=== PATIENT | male | born 1930 | race Caucasian/White ===

== ENCOUNTER 2017-08-06 12:12 | Inpatient (IN) ==
[2017-08-06] MEDS ORDERED: 0.9 % SODIUM CHLORIDE 1,000 ML IV ONE ×2 (12:21→14:42)
[2017-08-06] MEDS ORDERED: ONDANSETRON 4 MG/2 ML VIAL IV ONE (12:41)
[2017-08-06] MEDS ORDERED: LACTATED RINGERS 1,000 ML IV ONE (12:41)
--- NOTE | 2017-08-06 12:48 | Emergency Department Note ---
General Adult HPI - General Chief complaint: Weakness Stated complaint: nausea, weakness and headache Time Seen by Provider: 08/06/17 12:31 Source: patient Mode of arrival: EMS - History of Present Illness HPI Narrative: Patient has had flulike symptoms for about 24 hours with generalized weakness nausea slight cough. He has felt slightly dizzy and lightheaded. He recently switched from gabapentin to Tegretol and said the symptoms kind of started when he made this switch. - Related Data Home Medications Medication Instructions Recorded Confirmed Clopidogrel [Plavix] 75 mg PO DAILY 02/11/15 08/06/17 Latanoprost Ophth Drops [Xalatan 1 gtt OD HS 02/11/15 08/06/17 Ophth Drops] Levothyroxine [Synthroid] 50 mcg PO DAILY 02/11/15 08/06/17 Lisinopril [Zestril] 10 mg PO DAILY 02/11/15 08/06/17 Multivit-Min/FA/Lycopen/Lutein 1 each PO QDAY 02/11/15 08/06/17 [Centrum Silver Tablet] Pantoprazole [Protonix] 40 mg PO ONCE 02/11/15 08/06/17 Simvastatin [Zocor] 40 mg PO HS 02/11/15 08/06/17 carBAMazepine [Equetro] 200 mg PO Q12H 08/06/17 08/06/17 Allergies Allergy/AdvReac Type Severity Reaction Status Date / Time No Known Drug Allergies Allergy Verified 08/06/17 12:21 Review of Systems All systems ED: reviewed and negative except as stated. Past Medical History - Past Medical History Medical history: Reports: GERD, hypertension Surgical history ED: Reports: cataract - Social History smoking status: Former smoker Physical Exam Limitations: no limitations General appearance: alert Head: atraumatic Eye: Present: normal appearance ENT: normal exam Neck: Present: normal inspection Chest: Present: normal inspection Respiratory: Present: normal lung sounds bilaterally Cardiovascular: Present: regular rate, normal rhythm, normal heart sounds Abdominal: Present: soft. Absent: distention, tenderness Neurological: Present: alert Psychiatric: Present: normal affect Skin: Present: warm, dry, intact Course Vital Signs Temperature 97.2 F 08/06/17 12:14 Pulse Rate 63 08/06/17 12:14 Respiratory Rate 17 08/06/17 12:14 Blood Pressure 179/92 08/06/17 12:14 Pulse Oximetry (%) 97 08/06/17 12:14 Temperature 97.2 F 08/06/17 12:14 Pulse Rate 76 08/06/17 17:16 Respiratory Rate 15 08/06/17 17:16 Blood Pressure 167/88 08/06/17 17:16 Pulse Oximetry (%) 96 08/06/17 17:16 Medical Decision Making - MDM Narrative Medical decision making narrative: Patient's lab work urine and chest x-ray are unremarkable. However the patient felt too weak to get up and go home. We did hydrate him with 3 L of fluid but he still felt dizzy when he sat up. We will admit him observation to the hospital. - Lab Data Lab results reviewed: Yes I reviewed the patient's lab results. Result diagrams: 08/06/17 12:21 08/06/17 12:21 Lab Results 08/06/17 08/06/17 08/06/17 Range/Units 12:21 12:21 13:09 WBC 11.6 H (4.5-11.0) K/mcL RBC 4.05 L (4.50-5.90) M/mcL Hgb 12.7 L (13.5-16.5) g/dL Hct 37.8 L (41.0-55.0) % MCV 93.3 (80.0-100.0) fL MCH 31.4 (26.0-34.0) pg MCHC 33.7 (31.0-36.0) g/dL RDW 13.6 (11.5-14.5) % Plt Count 288 (140-440) K/mcL MPV 7.4 (7.4-10.4) fL Gran % 73.8 (38.0-78.0) % Lymph % (Auto) 18.4 (15.5-49.0) % [place] % (Auto) 5.0 (1.0-12.0) % Eos % (Auto) 2.5 (0.0-7.0) % Baso % (Auto) 0.3 (0.0-2.0) % Gran # 8.6 H (1.8-8.0) K/mcL Lymph # (Auto) 2.1 (1.5-4.8) K/mcL [place] # (Auto) 0.6 (0.1-0.9) K/mcL Eos # (Auto) 0.3 (0.0-0.7) K/mcL Baso # (Auto) 0 (0.0-0.3) K/mcL Sodium 144 (133-145) mmol/L Potassium 3.7 (3.3-5.1) mmol/L Chloride 110 H (96-108) mmol/L Carbon Dioxide 21 L (22-30) mmol/L Anion Gap 13.0 (8-16) BUN 20 (8-23) mg/dl Creatinine 0.9 (0.7-1.2) mg/dl GFR Calculation 78 Glucose 131 H (70-105) mg/dL Calcium 8.2 L (8.6-10.4) mg/dl Total Bilirubin 0.3 (0.0-1.0) mg/dL AST 12 (0-37) U/l ALT 10 (0-40) U/l Alkaline Phosphatase 93 (39-117) U/L Total Protein 6.5 (5.9-8.4) gm/dL Albumin 3.4 (3.2-5.2) gm/dL Globulin 3.1 (2.2-3.7) gm/dL Albumin/Globulin Ratio 1.1 (1.0-2.3) Urine Color Urine Appearance Urine pH (5.0-9.0) Ur Specific Roll (1.000-1.035) Urine Protein (NEG) mg/dL Urine Glucose (UA) (NEG) mg/dL Urine Ketones (NEG) mg/dL Urine Occult Blood (<0.03) mg/dL Urine Nitrate (NEG) Urine Bilirubin (NEG) mg/dL Urine Urobilinogen (NEG) mg/dL Ur Leukocyte Esterase (NEG) /uL Ur Culture Indicated? Influenza A (Rapid) Presumed negative Influenza B (Rapid) Presumed negative 08/06/17 Range/Units 16:03 WBC (4.5-11.0) K/mcL RBC (4.50-5.90) M/mcL Hgb (13.5-16.5) g/dL Hct (41.0-55.0) % MCV (80.0-100.0) fL MCH (26.0-34.0) pg MCHC (31.0-36.0) g/dL RDW (11.5-14.5) % Plt Count (140-440) K/mcL MPV (7.4-10.4) fL Gran % (38.0-78.0) % Lymph % (Auto) (15.5-49.0) % [place] % (Auto) (1.0-12.0) % Eos % (Auto) (0.0-7.0) % Baso % (Auto) (0.0-2.0) % Gran # (1.8-8.0) K/mcL Lymph # (Auto) (1.5-4.8) K/mcL [place] # (Auto) (0.1-0.9) K/mcL Eos # (Auto) (0.0-0.7) K/mcL Baso # (Auto) (0.0-0.3) K/mcL Sodium (133-145) mmol/L Potassium (3.3-5.1) mmol/L Chloride (96-108) mmol/L Carbon Dioxide (22-30) mmol/L Anion Gap (8-16) BUN (8-23) mg/dl Creatinine (0.7-1.2) mg/dl GFR Calculation Glucose (70-105) mg/dL Calcium (8.6-10.4) mg/dl Total Bilirubin (0.0-1.0) mg/dL AST (0-37) U/l ALT (0-40) U/l Alkaline Phosphatase (39-117) U/L Total Protein (5.9-8.4) gm/dL Albumin (3.2-5.2) gm/dL Globulin (2.2-3.7) gm/dL Albumin/Globulin Ratio (1.0-2.3) Urine Color Straw Urine Appearance Clear Urine pH 7.0 (5.0-9.0) Ur Specific Roll 1.012 (1.000-1.035) Urine Protein Neg (NEG) mg/dL Urine Glucose (UA) Negative (NEG) mg/dL Urine Ketones Neg (NEG) mg/dL Urine Occult Blood Neg (<0.03) mg/dL Urine Nitrate Neg (NEG) Urine Bilirubin Neg (NEG) mg/dL Urine Urobilinogen Neg (NEG) mg/dL Ur Leukocyte Esterase Neg (NEG) /uL Ur Culture Indicated? No Influenza A (Rapid) Influenza B (Rapid) - Radiology Data Radiology results reviewed: Yes I reviewed the patient's radiology results. Disposition Pt seen by DEATH CLAIM EXAMINER/PA only: No Clinical Impression: Viral syndrome Disposition: Xfer As Outpt/Obs ([facility]) Condition: Good Referrals: Ren Clayton MD [Primary Care Provider] - Time of Disposition: 17:26
[2017-08-06 13:02] LABS: Basophils # (Auto) 0 K/mcL (0.0-0.3); Basophils % (Auto) 0.3 % (0.0-2.0); Eosinophils # (Auto) 0.3 K/mcL (0.0-0.7); Eosinophils % (Auto) 2.5 % (0.0-7.0); Granulocytes % (Auto) 73.8 % (38.0-78.0); Lymphocytes # (Auto) 2.1 K/mcL (1.5-4.8); Lymphocytes % (Auto) 18.4 % (15.5-49.0); Mean Cell Volume 93.3 fL (80.0-100.0); Mean Corpuscular HGB Conc 33.7 g/dL (31.0-36.0); Mean Corpuscular Hemoglobin 31.4 pg (26.0-34.0); Monocytes # (Auto) 0.6 K/mcL (0.1-0.9); Platelet Count 288 K/mcL (140-440); RBC 4.05 M/mcL (4.50-5.90); Red Cell Distribution Width 13.6 % (11.5-14.5)
[2017-08-06 13:20] LABS: ALT/SGPT 10 U/l (0-40); Albumin 3.4 gm/dL (3.2-5.2); Albumin/Globulin Ratio 1.1 (1.0-2.3); Alkaline Phosphatase 93 U/L (39-117); Blood Urea Nitrogen 20 mg/dl (8-23)
--- NOTE | 2017-08-06 13:33 | XRay Report ---
CLINICAL INFORMATION: Fever and chills COMPARISON: 05/20/2014 FINDINGS: Heart is borderline enlarged, but unchanged. Mediastinum and pulmonary vessels are normal. Lungs are clear. No effusions. 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 IMPRESSION: No acute disease - stable since chest x-ray three years ago Interpreted and Authenticated by: Joselito John 08/06/17
[2017-08-06] MEDS ORDERED: LIDOCAINE JEL 2% 1 TUBE 30GM TOPICAL ONE ×2 (15:29→15:31)
[2017-08-06 16:50] LABS: Appearance,Urine CLEAR; Bilirubin,Urine NEG (NEG); Color,Urine STRAW; Glucose,Urine (UA) NEGATIVE (NEG); Leukocyte Esterase,Urine NEG /uL (NEG); Protein,Urine NEG (NEG); Specific Gravity,Urine 1.012 (1.000-1.035); Urine Blood NEG mg/dL (<0.03); Urobilinogen,Urine NEG (NEG)
[2017-08-06] MEDS ORDERED: ONDANSETRON 4 MG/2 ML VIAL ONE (17:53)
--- NOTE | 2017-08-06 17:57 | Internal Med History&Physical ---
Medical - H&P: HPI Patient information: Note initiated : 08/06/17 at 5:54 pm Service Date, if different from initiated Date: [] Patient: Martin Kincaid 86 y/o M admitted on for nausea, weakness and headache. Chief Complaint: [] History of present illness: Mr. Kincaid is a 86 year old Male with h/o chr back pain, who presents to the ER with 2 days history of not feeling well. The patient lives with his , was recently prescribed a medication I believe carbamazepine. The posterior most was taken on Monday night. Since Monday. The patient has been feeling weak and unsteady on his feet. He has dizziness when he tries to stand up, and has gait unsteadiness. The patient had some weakness in his lower extremity as well as unsteadiness. He notes his weakness started the day after he took the carbamazepine. The patient weakness progressed from yesterday to today, to a point where he is unable to ambulate by self He admits also to having abdominal pain, in the lower abdomen, intermittent to severe in intensity, waxing and waning, non radiating, no aggravating or relieving factors, not associated with BM or micturation. He has nausea and several bouts of vomiting since this Morning. He has some runny nose, but no cough. In the ER the patient was noted to be afebrile, had mild leucocytosis, neg cxr and neg ua The patients denies any slurring of speech, no facial deviation, no focal weakness, no fever, no blood in vomitus, no diarrhea or constipation. no urinary complaints. The patient was admitted to the hospital for further management. All systems: reviewed and no additional remarkable complaints except as stated ( as per HPI) Medical - H&P: PMH Medical history: vertebral artery stenosis HTN HLD HYpothyroidism Chr Back pain GERD Surgical history: Right knee surgery. Family history: reviewed and not pertinent Pertinent family history: mother with cardiac disease. Social history: lives with not an active smoker, ex smoker last cig > 35-40 yrs ago no etoh no recreational drugs. Medical - H&P: Meds Home Medications Medication Instructions Recorded Confirmed Type Clopidogrel [Plavix] 75 mg PO DAILY 02/11/15 08/06/17 History Latanoprost Ophth Drops [Xalatan 1 gtt OD HS 02/11/15 08/06/17 History Ophth Drops] Levothyroxine [Synthroid] 50 mcg PO DAILY 02/11/15 08/06/17 History Lisinopril [Zestril] 10 mg PO DAILY 02/11/15 08/06/17 History Multivit-Min/FA/Lycopen/Lutein 1 each PO QDAY 02/11/15 08/06/17 History [Centrum Silver Tablet] Pantoprazole [Protonix] 40 mg PO ONCE 02/11/15 08/06/17 History Simvastatin [Zocor] 40 mg PO HS 02/11/15 08/06/17 History carBAMazepine [Equetro] 200 mg PO Q12H 08/06/17 08/06/17 History Allergies Allergy/AdvReac Type Severity Reaction Status Date / Time No Known Drug Allergies Allergy Verified 08/06/17 12:21 Medical - H&P: Exam - Constitutional Vitals: Temp Pulse Resp BP Pulse Ox 97.2 F 76 15 167/88 96 08/06/17 12:14 08/06/17 17:16 08/06/17 17:16 08/06/17 17:16 08/06/17 17:16 Exam: GENERAL: The patient is a well-developed, well-nourished in no apparent distress. Is alert and oriented x3. VITAL SIGNS: Reviewed and as noted elsewhere. HEENT: Head is normocephalic and atraumatic. Extraocular muscles are intact. Pupils are equal, round, and reactive to light. Nares appeared normal. Mouth appears any without lesions. Mucous membranes are dry NECK: Normal to inspection, Supple, No lymphadenopathy or thyromegaly. LUNGS: Air entry equal on both sides, no wheezing, crackles or rhonchi noted. No accessory muscles of respiration HEART: Regular rate and rhythm normal, S1 and S2 heard, no Gallop, S3 or Rub Noted, No Gross murmur heard. ABDOMEN: Soft, mild tenderness to deep palpation in the lower abdomen, no guarding or rigidity, abdomen is nondistended. Positive bowel sounds. No hepatosplenomegaly was noted. EXTREMITIES: No cyanosis, clubbing, rash, lesions or edema. NEUROLOGIC: Cranial nerves II through XII are intact. Motor and Sensory System Grossly Intact, upper extremity strength bilaterally 5/5, lower extremity strenght gladis 4+/5, able to percieve touch bilaterally in lower extremity, no spinal tenderness. PSYCHIATRIC: Normal affect, Normal Mood. Appropriate Behavior. SKIN: No ulceration or wounds noted, No jaundice, No rash noted. Medical - H&P: Reslt - Labs CBC & Chem 7: 08/06/17 12:21 08/06/17 12:21 Labs: Short CBC 08/06/17 Range/Units 12:21 WBC 11.6 H (4.5-11.0) K/mcL Hgb 12.7 L (13.5-16.5) g/dL Hct 37.8 L (41.0-55.0) % Plt Count 288 (140-440) K/mcL BMP 08/06/17 12:21 Sodium 144 Potassium 3.7 Chloride 110 H Carbon Dioxide 21 L BUN 20 Creatinine 0.9 Glucose 131 H Calcium 8.2 L Liver Function 08/06/17 Range/Units 12:21 Total Bilirubin 0.3 (0.0-1.0) mg/dL AST 12 (0-37) U/l ALT 10 (0-40) U/l Alkaline Phosphatase 93 (39-117) U/L Albumin 3.4 (3.2-5.2) gm/dL Urine 08/06/17 Range/Units 16:03 Urine Color Straw Urine Appearance Clear Urine pH 7.0 (5.0-9.0) Ur Specific [place] 1.012 (1.000-1.035) Urine Protein Neg (NEG) mg/dL Urine Glucose (UA) Negative (NEG) mg/dL Medical - H&P: A/P - Narrative A/P Narrative: A/P Leucocytosis/ ABdominal pain: Pt has unexplained leucocytosis, abdominal pain, nausea and vomiting, GET CT Abdomen and pelvis, may explain pt weakness. Dizziness/ lower extremity weakness: Could be related to patient starting a new medication, carbamazipine, hold same for now, get CT head. HTN: BP elevated resume home medication, prn po clonidine HLD resume home med Hypothyroidsim, continue statin Vertebral Artery s tenosis: not candidate for intervention as per family, plan to continue statin, plavix for now. CT head will help evaluate any acute CVA. OT/PT eval and treat Prn pain meds for chr back pain DVT hep sq Diet cardiac DNR code status.
[2017-08-06] MEDS ORDERED: ALBUTEROL SULFATE 2.5 MG/3 ML NEBULIZER NEB PRN (18:05)
[2017-08-06] MEDS ORDERED: oxyCODONE HCL 5 MG TABLET PO PRN (18:05)
[2017-08-06] MEDS ORDERED: ONDANSETRON 4 MG/2 ML VIAL IV PRN (18:05)
[2017-08-06] MEDS ORDERED: IOPAMIDOL 100 ML BOTTLE IV ONE (18:18)
[2017-08-06] MEDS: ACETAMINOPHEN 325 MG TABLET PO PRN (19:24)
[2017-08-06] MEDS: cloNIDine HCL 0.1 MG TABLET PO PRN (19:25)
[2017-08-06] MEDS: DEXTROSE 5%-LR W/20MEQ KCL 1,000 ML IV SCH (19:25)
[2017-08-06] MEDS: LISINOPRIL 10 MG TABLET PO SCH (19:25)
--- NOTE | 2017-08-06 19:47 | Cat Scan Report ---
CLINICAL INFORMATION: Dizziness COMPARISON: CT cerebral angiogram from over three years prior - 04/02/2014. TECHNIQUE: 2.5 mm helical slices were obtained in the skull base to vertex. Following reconstruction, axial reformatted images were reviewed at bone and parenchymal windows. The exam was performed using radiation dose optimization techniques including, but not limited to, automated exposure control, adjustment of the mA and/or kV according to patient size and use of iterative reconstruction technique. FINDINGS: The ventricles, sulci, fissures, and cisterns are symmetrically enlarged compatible with mild age-related atrophy - no subdural hemorrhage or other extra-axial fluid collection or mass appreciated. Minimal chronic ischemic changes in the deep cerebral white matter are stable and typical for age. There is no intracerebral hemorrhage, mass effect, edema or other acute finding. Bone windows show no osseous abnormality IMPRESSION: Mild atrophy with minimal chronic ischemic changes in the deep cerebral white matter typical for age and unchanged from prior study Interpreted and Authenticated by: Joselito John 08/06/17
--- NOTE | 2017-08-06 19:56 | Cat Scan Report ---
CLINICAL INFORMATION: Nausea and vomiting abdominal pain COMPARISON: Abdomen and pelvic CT 07/16/2012 TECHNIQUE: Following enteric contrast, 80 cc of Isovue-300 were injected intravenously, and 60 seconds later, 0.625 mm helical slices were obtained from the mid heart through the subtrochanteric regions. Following reconstruction, 2.5 mm sagittal, coronal and axial reformatted images were processed and reviewed at bone, lung and soft tissue windows. Five minutes later, 0.625 mm helical slices were obtained from the mid heart through the kidneys and viewed at soft tissue windows.The exam was performed using radiation dose optimization techniques including, but not limited to, automated exposure control, adjustment of the mA and/or kV according to patient size and use of iterative reconstruction technique. FINDINGS: Lung bases show scattered pleural plaques which are stable since the 2012 study. Some are partially calcified: Findings compatible asbestos exposure. There are no effusions. Visualized heart is mildly enlarged and there is calcific plaque in the visualized coronary arteries. Images through the abdomen show an 18 mm simple cyst in the left hepatic lobe. No significant hepatic abnormality. Gallbladder and bile ducts are normal: CBD is 5 mm. The spleen, both adrenal glands, pancreas and aorta, including aortic branches, are normal in size, configuration and attenuation without focal lesion. Parapelvic cysts are seen in each kidney but no significant renal lesion. There is no free air, free fluid or adenopathy. Stomach, small bowel and appendix are unremarkable. Multiple sigmoid diverticuli with mild inflammation of perisigmoid fat is suggestive of mild sigmoid diverticulitis. The remaining colon is Prostate is mildly enlarged and there is marked distention of the urinary bladder. Urinary bladder wall is normal thickness. Please Bone windows show no osseous abnormality IMPRESSION: 1. Sigmoid diverticulitis - no abscess or other complication 2. Moderate distention of the urinary bladder. Prostate is mildly enlarged 3. Multiple parapelvic cysts on both kidneys 4. 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 Interpreted and Authenticated by: Joselito John 08/06/17
[2017-08-06] MEDS: CIPROFLOXACIN 400 MG/200 ML BAG IV SCH (22:03)
[2017-08-06] MEDS: 0.9 % SODIUM CHLORIDE 10 ML SYRINGE IV SCH (22:05)
[2017-08-06] MEDS: DOCUSATE SODIUM 100 MG CAPSULE PO SCH (22:54)
[2017-08-06] MEDS: LATANOPROST OPHTH DROPS 2.5ML BOTTLE OD SCH (22:54)
[2017-08-06] MEDS: HEPARIN 5,000 UNIT/ML VIAL SQ SCH (22:54)
[2017-08-06] MEDS: SIMVASTATIN 40 MG TABLET PO SCH (22:55)
[2017-08-06] MEDS: metroNIDAZOLE 500 MG/100 ML BAG IV SCH (23:10)
[2017-08-07] MEDS: metroNIDAZOLE 500 MG/100 ML BAG IV SCH ×3 (05:45→21:55)
[2017-08-07 05:59] LABS: Basophils # (Auto) 0 K/mcL (0.0-0.3); Basophils % (Auto) 0.2 % (0.0-2.0); Eosinophils # (Auto) 0.2 K/mcL (0.0-0.7); Eosinophils % (Auto) 1.9 % (0.0-7.0); Granulocytes % (Auto) 68.9 % (38.0-78.0); Lymphocytes # (Auto) 2.5 K/mcL (1.5-4.8); Lymphocytes % (Auto) 21.6 % (15.5-49.0); Mean Cell Volume 95.4 fL (80.0-100.0); Mean Corpuscular HGB Conc 34.8 g/dL (31.0-36.0); Mean Corpuscular Hemoglobin 33.2 pg (26.0-34.0); Monocytes # (Auto) 0.9 K/mcL (0.1-0.9); Monocytes % (Auto) 7.4 % (1.0-12.0); Platelet Count 258 K/mcL (140-440); RBC 3.47 M/mcL (4.50-5.90); Red Cell Distribution Width 13.9 % (11.5-14.5)
[2017-08-07] MEDS: 0.9 % SODIUM CHLORIDE 10 ML SYRINGE IV SCH ×3 (05:59→21:49)
[2017-08-07 06:32] LABS: ALT/SGPT 8 U/l (0-40); Albumin 3.3 gm/dL (3.2-5.2); Albumin/Globulin Ratio 1.2 (1.0-2.3); Alkaline Phosphatase 88 U/L (39-117); Bilirubin,Direct < 0.2 mg/dL (0.0-0.3); Blood Urea Nitrogen 17 mg/dl (8-23); Gamma Glutamyl Transpeptidase 12 U/L (8-61)
[2017-08-07] MEDS: PANTOPRAZOLE 40 MG TABLET PO SCH (08:03)
[2017-08-07] MEDS: LEVOTHYROXINE 50 MCG TABLET PO SCH (08:03)
[2017-08-07] MEDS: LISINOPRIL 10 MG TABLET PO SCH (09:40)
[2017-08-07] MEDS: DOCUSATE SODIUM 100 MG CAPSULE PO SCH ×2 (09:40→20:50)
[2017-08-07] MEDS: CLOPIDOGREL 75 MG TABLET PO SCH (09:41)
[2017-08-07] MEDS: CIPROFLOXACIN 400 MG/200 ML BAG IV SCH ×2 (09:41→20:50)
[2017-08-07] MEDS: HEPARIN 5,000 UNIT/ML VIAL SQ SCH ×2 (09:47→20:50)
[2017-08-07] MEDS: DEXTROSE 5%-LR W/20MEQ KCL 1,000 ML IV SCH (13:08)
--- NOTE | 2017-08-07 13:58 | Internal Med Progress Note ---
Medical - PN: Subj Patient information: Note initiated : 08/07/17 at 1:56 pm Service Date, if different from initiated Date: [] Patient: Martin Kincaid 86 y/o M admitted on 08/07/17 for Nausea, Weakness and Headache. Chief Complaint: [] Interval history: Mr. Kincaid is a 86 year old Male with h/o chr back pain, who presents to the ER with 2 days history of not feeling well. The patient lives with his , was recently prescribed a medication I believe carbamazepine. The posterior most was taken on Monday night. Since Monday. The patient has been feeling weak and unsteady on his feet. He has dizziness when he tries to stand up, and has gait unsteadiness. The patient had some weakness in his lower extremity as well as unsteadiness. He notes his weakness started the day after he took the carbamazepine. The patient weakness progressed from yesterday to today, to a point where he is unable to ambulate by self He admits also to having abdominal pain, in the lower abdomen, intermittent to severe in intensity, waxing and waning, non radiating, no aggravating or relieving factors, not associated with BM or micturation. He has nausea and several bouts of vomiting since this Morning. He has some runny nose, but no cough. In the ER the patient was noted to be afebrile, had mild leucocytosis, neg cxr and neg ua The patients denies any slurring of speech, no facial deviation, no focal weakness, no fever, no blood in vomitus, no diarrhea or constipation. no urinary complaints. The patient was admitted to the hospital for further management. Aug 07 Patient seen examined, no acute overnight events, patient still feels very weak , although somewhat better than yesterday. Still unable to walk without support. Still has weakness in bilateral lower extremities. He denies any fever, chills, abdominal pain, unchanged. No constipation, no diarrhea. CT scan done yesterday shows sigmoid diabetes mellitus, uncomplicated. This is a 86-year-old gentleman with significant physical symptoms like weakness, dizziness and fatigue, diverticulitis on her CT abdomen and leukocytosis on labs. I do not expect this elderly gentleman to mount a full treatment response -like high-grade fevers and very high white count, but still be quite sick, as well as have significant debility secondary to his infection. I anticipate that this gentleman will need aggressive physical therapy as well as IV antibiotics. I therefore recommend anticipate him to be in the hospital for more than 2 midnights and was therefore make him inpatient status. Pertinent ROS: Denies headache, dizziness Denies chest pain, palpitations Denies cough or shortness of breath present abdominal pain, improving nausea no vomiting. - Constitutional Vitals: Vital Signs Temp Pulse Resp BP Pulse Ox 98.3 F 58 L 16 162/84 96 08/07/17 11:59 08/07/17 04:00 08/07/17 11:59 08/07/17 11:59 08/07/17 11:59 Period Temp Pulse Resp BP Sys/Souza Pulse Ox Last 24 Hr 97.5 F-98.3 F 58-83 12-19 150-192/79-102 94-99 Intake and Output 08/06/17 08/07/17 08/07/17 21:59 05:59 13:59 Intake Total 1000 / 1000 400 / 400 1300 / 1300 Output Total 276 / 276 725 / 725 Balance 724 / 724 -325 / -325 1300 / 1300 Weight 180 lb Intake & Output: Intake & Output 08/06/17 08/07/17 08/07/17 21:59 05:59 13:59 Intake Total 1000 / 1000 400 / 400 1300 / 1300 Output Total 276 / 276 725 / 725 Balance 724 / 724 -325 / -325 1300 / 1300 Weight 180 lb Intake: IV 1000 / 1000 300 / 300 1300 / 1300 Dextrose 5%-Lr W/20Meq KCl 1, 1000 / 1000 000 ml @ 75 mls/hr IV .[id number] [facility] Rx#:[id number] Lactated Ringers 1,000 ml @ 1000 / 1000 Wide Open IV BOLUS ONE Rx#: [id number] Oral 100 / 100 Output: Void Amount 275 / 275 725 / 725 # of times incontinent of urine Other: # Voids 1 1 Exam: Constitutional; Afebrile, cooperative, alert, not in distress. Eyes- No icterus, , No periorbital swelling Ears- Ext ear normal, hearing normal to conversation. Neck- Midline trachea, supple Respiratory system: Air Entry equal on both sides, No crackles or wheezing, no rhonchi. CVS- Rate rhythm regular, S1,S2 heard, no gallop, no rub. Abdomen- Soft , tender hypogastric on deep palpation no guarding or rigidity,. ANALYTICAL CONSULTANT- AOOx3, moving all extremities, no gross focal deficit noted. Medical - PN: Obj Da - Labs CBC & Chem 7: 08/07/17 04:32 08/07/17 04:32 Labs: Abnormal Lab Results 08/07/17 08/07/17 08/06/17 04:32 04:32 12:21 WBC 11.6 H RBC 3.47 L Hgb 11.5 L Hct 33.1 L Gran # Chloride 110 H Carbon Dioxide 21 L Glucose 109 H 131 H Calcium 8.2 L 08/06/17 12:21 WBC 11.6 H RBC 4.05 L Hgb 12.7 L Hct 37.8 L Gran # 8.6 H Chloride Carbon Dioxide Glucose Calcium Meds: Medications Acetaminophen (Tylenol) 650 mg PO Q6HP PRN PRN Reason: PAIN/FEVER > 101 Last Admin: 08/06/17 19:24 Dose: 650 mg Albuterol Sulfate (Ventolin) 2.5 mg NEB Q2HP PRN PRN Reason: Shortness Of Breath Clonidine HCl (Catapres) 0.1 mg PO Q4HP PRN PRN Reason: Hypertension Last Admin: 08/06/17 19:25 Dose: 0.1 mg Clopidogrel Bisulfate (Plavix) 75 mg PO DAILY [facility] Last Admin: 08/07/17 09:41 Dose: 75 mg Docusate Sodium (Colace) 100 mg PO BID [facility] Last Admin: 08/07/17 09:40 Dose: 100 mg Heparin Sodium (Porcine) (Heparin) 5,000 unit SQ Q12 [facility] Last Admin: 08/07/17 09:47 Dose: 5,000 unit Potassium Cl/Dextrose/Lact Ringer's (Dextrose 5%-Lr W/20meq Kcl) 1,000 mls @ 75 mls/hr IV .[id number] [facility] Stop: 08/07/17 20:44 Last Admin: 08/07/17 13:08 Dose: 75 mls/hr Ciprofloxacin (Cipro) 400 mg in 200 mls @ 200 mls/hr IV Q12H [facility] Last Infusion: 08/07/17 10:45 Dose: Infused Metronidazole (Flagyl) 500 mg in 100 mls @ 100 mls/hr IV Q8H [facility] Last Infusion: 08/07/17 06:45 Dose: Infused Latanoprost (Xalatan Ophth Drops) 1 gtt OD HS [facility] Last Admin: 08/06/17 22:54 Dose: Not Given Levothyroxine Sodium (Synthroid) 50 mcg PO ACB [facility] Last Admin: 08/07/17 08:03 Dose: 50 mcg Lisinopril (Zestril) 10 mg PO DAILY [facility] Last Admin: 08/07/17 09:40 Dose: 10 mg Ondansetron HCl (Zofran) 4 mg IV Q6HP PRN PRN Reason: Nausea And Vomiting Oxycodone HCl (Roxicodone) 5 mg PO Q4HP PRN PRN Reason: Pain Level 5-10 Pantoprazole Sodium (Protonix) 40 mg PO QAMAC [facility] Last Admin: 08/07/17 08:03 Dose: 40 mg Simvastatin (Zocor) 40 mg PO [facility] Last Admin: 08/06/17 22:55 Dose: Not Given Sodium Chloride (Saline Flush) 10 ml IV Q8 [facility] Last Admin: 08/07/17 05:59 Dose: Not Given Medical - PN: A/P - Time Spent With Patient Total time spent is greater than 50% in coordination of care (as documented) at patient's floor/unit and/or counseling patient: - Narrative A/P Narrative: A/P Acute Diverticulitis,: Noted on CT scan, no complication, IV cipro and flagyl for now. Dizziness/ lower extremity weakness: Could be related to patient starting a new medication, carbamazipine, levels are therapeutic, or could be related to acute infection,, likelyi acute infection is playing a role here. Treat underlying etiology and monitor, aggresive rehab. HTN: BP elevated resume home medication, prn po clonidine HLD resume home med Hypothyroidsim, continue levothyroxine. Vertebral Artery stenosis: not candidate for intervention as per family, CT head is neg for CVA. Exam today shows 4/5 gladis strenght in lower legs, heel to perales is normal. OT/PT eval and treat Prn pain meds for chr back pain DVT hep sq Diet cardiac DNR code status. Medical - PN: Qual - VTE Deep Vein Thrombosis/Pulmonary Embolism Present on Admission: No
[2017-08-07] MEDS: SIMVASTATIN 40 MG TABLET PO SCH (20:50)
[2017-08-07] MEDS: LATANOPROST OPHTH DROPS 2.5ML BOTTLE OD SCH (20:54)
[2017-08-07] MEDS: ACETAMINOPHEN 325 MG TABLET PO PRN (22:02)
[2017-08-07] MEDS: cloNIDine HCL 0.1 MG TABLET PO PRN (23:41)
[2017-08-08] MEDS: metroNIDAZOLE 500 MG/100 ML BAG IV SCH ×4 (05:32→21:40)
[2017-08-08] MEDS: 0.9 % SODIUM CHLORIDE 10 ML SYRINGE IV SCH ×3 (05:33→21:41)
[2017-08-08 05:49] LABS: Basophils # (Auto) 0 K/mcL (0.0-0.3); Basophils % (Auto) 0.4 % (0.0-2.0); Eosinophils # (Auto) 0.3 K/mcL (0.0-0.7); Eosinophils % (Auto) 3.2 % (0.0-7.0); Granulocytes % (Auto) 55.6 % (38.0-78.0); Lymphocytes % (Auto) 33.6 % (15.5-49.0); Mean Cell Volume 94.5 fL (80.0-100.0); Mean Corpuscular HGB Conc 35.4 g/dL (31.0-36.0); Mean Corpuscular Hemoglobin 33.5 pg (26.0-34.0); Monocytes # (Auto) 0.6 K/mcL (0.1-0.9); Monocytes % (Auto) 7.2 % (1.0-12.0); Platelet Count 249 K/mcL (140-440); RBC 3.38 M/mcL (4.50-5.90); Red Cell Distribution Width 13.8 % (11.5-14.5)
[2017-08-08 06:11] LABS: ALT/SGPT 9 U/l (0-40); Albumin/Globulin Ratio 1.1 (1.0-2.3); Alkaline Phosphatase 86 U/L (39-117); Bilirubin,Direct < 0.2 mg/dL (0.0-0.3); Blood Urea Nitrogen 13 mg/dl (8-23); Gamma Glutamyl Transpeptidase 14 U/L (8-61); Uric Acid 3.8 mg/dL (2.5-8.0)
[2017-08-08] MEDS: PANTOPRAZOLE 40 MG TABLET PO SCH (08:13)
[2017-08-08] MEDS: LEVOTHYROXINE 50 MCG TABLET PO SCH (08:14)
[2017-08-08] MEDS: CLOPIDOGREL 75 MG TABLET PO SCH (09:09)
[2017-08-08] MEDS: DOCUSATE SODIUM 100 MG CAPSULE PO SCH ×2 (09:10→21:41)
[2017-08-08] MEDS: HEPARIN 5,000 UNIT/ML VIAL SQ SCH ×2 (09:11→21:40)
[2017-08-08] MEDS: LISINOPRIL 10 MG TABLET PO SCH (09:11)
[2017-08-08] MEDS: CIPROFLOXACIN 400 MG/200 ML BAG IV SCH (09:32)
[2017-08-08] MEDS: cloNIDine HCL 0.1 MG TABLET PO PRN (14:32)
--- NOTE | 2017-08-08 18:51 | Internal Med Progress Note ---
Medical - PN: Subj Patient information: Note initiated : 08/08/17 at 6:48 pm Service Date, if different from initiated Date: [] Patient: Martin Kincaid 86 y/o M admitted on 08/07/17 for Nausea, Weakness and Headache/Diverticulitis. Chief Complaint: [] Interval history: Mr. Kincaid is a 86 year old Male with h/o chr back pain, who presents to the ER with 2 days history of not feeling well. The patient lives with his , was recently prescribed a medication I believe carbamazepine. The posterior most was taken on Monday night. Since Monday. The patient has been feeling weak and unsteady on his feet. He has dizziness when he tries to stand up, and has gait unsteadiness. The patient had some weakness in his lower extremity as well as unsteadiness. He notes his weakness started the day after he took the carbamazepine. The patient weakness progressed from yesterday to today, to a point where he is unable to ambulate by self He admits also to having abdominal pain, in the lower abdomen, intermittent to severe in intensity, waxing and waning, non radiating, no aggravating or relieving factors, not associated with BM or micturation. He has nausea and several bouts of vomiting since this Morning. He has some runny nose, but no cough. In the ER the patient was noted to be afebrile, had mild leucocytosis, neg cxr and neg ua The patients denies any slurring of speech, no facial deviation, no focal weakness, no fever, no blood in vomitus, no diarrhea or constipation. no urinary complaints. The patient was admitted to the hospital for further management. Aug 07 Patient seen examined, no acute overnight events, patient still feels very weak , although somewhat better than yesterday. Still unable to walk without support. Still has weakness in bilateral lower extremities. He denies any fever, chills, abdominal pain, unchanged. No constipation, no diarrhea. CT scan done yesterday shows sigmoid diabetes mellitus, uncomplicated. This is a 86-year-old gentleman with significant physical symptoms like weakness, dizziness and fatigue, diverticulitis on her CT abdomen and leukocytosis on labs. I do not expect this elderly gentleman to mount a full treatment response -like high-grade fevers and very high white count, but still be quite sick, as well as have significant debility secondary to his infection. I anticipate that this gentleman will need aggressive physical therapy as well as IV antibiotics. I therefore recommend anticipate him to be in the hospital for more than 2 midnights and was therefore make him inpatient status. Aug 08 patient seen and examined. Patient's at bedside and has no acute complaints, was able to walk with physical therapy today. Feels like his strength in his lower extremity is returning slowly. Carbamazepine has not been resumed yet. Continue antibiotics for now. WBC count is now normal. Patient is able to tolerate by mouth diet well. Pertinent ROS: Patient denies any abdominal pain, nausea, Denies any headache , Dizziness is improving Denies any chest pain, shortness of breath - Constitutional Vitals: Vital Signs Temp Pulse Resp BP Pulse Ox 98.1 F 65 20 162/98 95 08/08/17 15:55 08/08/17 15:55 08/08/17 07:08 08/08/17 15:55 08/08/17 15:55 Period Temp Pulse Resp BP Sys/Souza Pulse Ox Last 24 Hr 97.0 F-98.7 F 57-65 20-20 154-185/80-102 95-97 Intake and Output 08/08/17 08/08/17 08/08/17 05:59 13:59 21:59 Intake Total 650 / 650 960 / 960 340 / 340 Output Total 700 / 700 900 / 900 1150 / 1150 Balance -50 / -50 60 / 60 -810 / -810 Weight 178 lb 8 oz Patient Weight 08/09/17 05:59 Weight 178 lb 8 oz Intake & Output: Intake & Output 08/08/17 08/08/17 08/08/17 05:59 13:59 21:59 Intake Total 650 / 650 960 / 960 340 / 340 Output Total 700 / 700 900 / 900 1150 / 1150 Balance -50 / -50 60 / 60 -810 / -810 Weight 178 lb 8 oz Intake: IV 300 / 300 300 / 300 100 / 100 Oral 350 / 350 660 / 660 240 / 240 Output: Void Amount 700 / 700 900 / 900 1150 / 1150 Other: Meal Lunch Dinner Percent of Meal Consumed 100% 100% Feeding Ability Independent Stool Size Moderate Stool Color Brown Stool Consistency Formed # Voids 1 Exam: Constitutional; Afebrile, cooperative, alert, not in distress. Eyes- No icterus, , No periorbital swelling Ears- Ext ear normal, hearing normal to conversation. Neck- Midline trachea, supple Respiratory system: Air Entry equal on both sides, No crackles or wheezing, no rhonchi. CVS- Rate rhythm regular, S1,S2 heard, no gallop, no rub. 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 Medical - PN: Obj Da - Labs CBC & Chem 7: 08/08/17 04:20 08/08/17 04:20 Labs: Abnormal Lab Results 08/08/17 08/08/17 08/07/17 04:20 04:20 04:32 WBC RBC 3.38 L Hgb 11.3 L Hct 31.9 L Gran # Chloride 110 H Carbon Dioxide Glucose 109 H Calcium Phosphorus 2.6 L Total Protein 5.8 L Albumin 3.0 L 08/07/17 08/06/17 08/06/17 04:32 12:21 12:21 WBC 11.6 H 11.6 H RBC 3.47 L 4.05 L Hgb 11.5 L 12.7 L Hct 33.1 L 37.8 L Gran # 8.6 H Chloride 110 H Carbon Dioxide 21 L Glucose 131 H Calcium 8.2 L Phosphorus Total Protein Albumin Meds: Medications Acetaminophen (Tylenol) 650 mg PO Q6HP PRN PRN Reason: PAIN/FEVER > 101 Last Admin: 08/07/17 22:02 Dose: 650 mg Albuterol Sulfate (Ventolin) 2.5 mg NEB Q2HP PRN PRN Reason: Shortness Of Breath Ciprofloxacin (Cipro) 500 mg PO BID [facility] Clonidine HCl (Catapres) 0.1 mg PO Q4HP PRN PRN Reason: Hypertension Last Admin: 08/08/17 14:32 Dose: 0.1 mg Clopidogrel Bisulfate (Plavix) 75 mg PO DAILY [facility] Last Admin: 08/08/17 09:09 Dose: 75 mg Docusate Sodium (Colace) 100 mg PO BID [facility] Last Admin: 08/08/17 09:10 Dose: 100 mg Heparin Sodium (Porcine) (Heparin) 5,000 unit SQ Q12 [facility] Last Admin: 08/08/17 09:11 Dose: 5,000 unit Metronidazole (Flagyl) 500 mg in 100 mls @ 100 mls/hr IV Q8H [facility] Last Infusion: 08/08/17 15:35 Dose: Infused Latanoprost (Xalatan Ophth Drops) 1 gtt OD [facility] Last Admin: 08/07/17 20:54 Dose: Not Given Levothyroxine Sodium (Synthroid) 50 mcg PO ACB [facility] Last Admin: 08/08/17 08:14 Dose: 50 mcg Lisinopril (Zestril) 10 mg PO DAILY [facility] Last Admin: 08/08/17 09:11 Dose: 10 mg Ondansetron HCl (Zofran) 4 mg IV Q6HP PRN PRN Reason: Nausea And Vomiting Oxycodone HCl (Roxicodone) 5 mg PO Q4HP PRN PRN Reason: Pain Level 5-10 Pantoprazole Sodium (Protonix) 40 mg PO QAMAC [facility] Last Admin: 08/08/17 08:13 Dose: 40 mg Simvastatin (Zocor) 40 mg PO [facility] Last Admin: 08/07/17 20:50 Dose: 40 mg Sodium Chloride (Saline Flush) 10 ml IV Q8 [facility] Last Admin: 08/08/17 18:01 Dose: 10 ml Medical - PN: A/P - Time Spent With Patient Total time spent is greater than 50% in coordination of care (as documented) at patient's floor/unit and/or counseling patient: - Narrative A/P Narrative: A/P Acute Diverticulitis,: Noted on CT scan, no complication, IV cipro and flagyl for now. Dizziness/ lower extremity weakness: Could be related to patient starting a new medication, carbamazipine, levels are therapeutic, or could be related to acute infection,, likelyi acute infection is playing a role here. Treat underlying etiology and monitor, aggresive rehab. patient is clinically improving HTN: BP elevated resume home medication, prn po clonidinemonitor. Adjust medications if blood pressure still high by tomorrow HLD home medications resumed Hypothyroidsim, continue levothyroxine. Vertebral Artery stenosis: not candidate for intervention as per family, CT head is neg for CVA. Exam today shows 4/5 gladis strenght in lower legs, heel to perales is normal. OT/PT eval and treat appreciate their input Prn pain meds for chr back pain, avoid using carbamazepine DVT hep sq Diet cardiac DNR code status. Medical - PN: Qual - VTE Deep Vein Thrombosis/Pulmonary Embolism Present on Admission: No
[2017-08-08] MEDS ORDERED: CIPROFLOXACIN 400 MG/200 ML BAG IV SCH (21:00)
[2017-08-08] MEDS: SIMVASTATIN 40 MG TABLET PO SCH (21:40)
[2017-08-08] MEDS: CIPROFLOXACIN 500 MG TABLET PO SCH (21:40)
[2017-08-08] MEDS: LATANOPROST OPHTH DROPS 2.5ML BOTTLE OD SCH (21:41)
[2017-08-08] MEDS: ACETAMINOPHEN 325 MG TABLET PO PRN (22:41)
[2017-08-09] MEDS: 0.9 % SODIUM CHLORIDE 10 ML SYRINGE IV SCH ×2 (05:56→14:42)
[2017-08-09] MEDS: metroNIDAZOLE 500 MG/100 ML BAG IV SCH ×2 (05:56→14:41)
[2017-08-09 06:04] LABS: Basophils # (Auto) 0 K/mcL (0.0-0.3); Basophils % (Auto) 0.4 % (0.0-2.0); Eosinophils # (Auto) 0.4 K/mcL (0.0-0.7); Eosinophils % (Auto) 5.1 % (0.0-7.0); Granulocytes % (Auto) 48.3 % (38.0-78.0); Lymphocytes # (Auto) 3.1 K/mcL (1.5-4.8); Mean Cell Volume 94.3 fL (80.0-100.0); Mean Corpuscular HGB Conc 34.9 g/dL (31.0-36.0); Mean Corpuscular Hemoglobin 32.9 pg (26.0-34.0); Monocytes # (Auto) 0.8 K/mcL (0.1-0.9); Monocytes % (Auto) 9.2 % (1.0-12.0); Platelet Count 256 K/mcL (140-440); RBC 3.68 M/mcL (4.50-5.90)
[2017-08-09 06:19] LABS: ALT/SGPT 10 U/l (0-40); Albumin 3.2 gm/dL (3.2-5.2); Albumin/Globulin Ratio 1.1 (1.0-2.3); Alkaline Phosphatase 92 U/L (39-117); Bilirubin,Direct < 0.2 mg/dL (0.0-0.3); Blood Urea Nitrogen 18 mg/dl (8-23); Gamma Glutamyl Transpeptidase 17 U/L (8-61); Uric Acid 4.6 mg/dL (2.5-8.0)
[2017-08-09] MEDS: PANTOPRAZOLE 40 MG TABLET PO SCH (07:23)
[2017-08-09] MEDS: LEVOTHYROXINE 50 MCG TABLET PO SCH (07:23)
[2017-08-09] MEDS: LISINOPRIL 10 MG TABLET PO SCH (08:41)
[2017-08-09] MEDS: HEPARIN 5,000 UNIT/ML VIAL SQ SCH (08:41)
[2017-08-09] MEDS: CIPROFLOXACIN 500 MG TABLET PO SCH (08:41)
[2017-08-09] MEDS: CLOPIDOGREL 75 MG TABLET PO SCH (08:41)
[2017-08-09] MEDS: DOCUSATE SODIUM 100 MG CAPSULE PO SCH (08:41)
--- NOTE | 2017-08-09 13:44 | Discharge Summary ---
Medical - DS: Prov Patient information: Note initiated : 08/09/17 at 1:38 pm Service Date, if different from initiated Date: [] Patient: Martin Kincaid 86 y/o M admitted on 08/07/17 for Nausea, Weakness and Headache/Diverticulitis. Chief Complaint: [] Date of admission: 08/07/17 13:46 Discharge date: 08/09/17 Primary care physician: Ren Clayton Admitting clinician: Ruiz Kebede Consults: 08/06/17 17:22 Consult to Physician [CONS] Stat Comment: Consulting Provider: Ruiz Kebede Reason For Exam: Physician to Consult Discharging clinician: Ruiz Kebede Medical - DS: Meds - Discharge Medications Prescriptions: Ciprofloxacin [Cipro] 500 mg PO BID #10 tab metroNIDAZOLE [Metronidazole] 500 mg PO TID #15 tab Active and Home Medications: Home Medications Clopidogrel [Plavix] 75 mg PO DAILY 02/11/15 [History Confirmed 08/06/17 Last Taken 08/05/17 15:00] Latanoprost Ophth Drops [Xalatan Ophth Drops] 1 gtt OD HS 02/11/15 [History Confirmed 08/06/17 Last Taken 08/05/17 21:00] Levothyroxine [Synthroid] 50 mcg PO DAILY 02/11/15 [History Confirmed 08/06/17 Last Taken 08/05/17 09:00] Lisinopril [Zestril] 10 mg PO DAILY 02/11/15 [History Confirmed 08/06/17 Last Taken 08/05/17 21:00] Multivit-Min/FA/Lycopen/Lutein [Centrum Silver Tablet] 1 each PO QDAY 02/11/15 [ History Confirmed 08/06/17 Last Taken 08/05/17 21:00] Pantoprazole [Protonix] 40 mg PO ONCE 02/11/15 [History Confirmed 08/06/17 Last Taken 08/05/17 09:00] Simvastatin [Zocor] 40 mg PO HS 02/11/15 [History Confirmed 08/06/17 Last Taken 08/05/17 15:00] carBAMazepine [Equetro] 200 mg PO Q12H 08/06/17 [History Confirmed 08/06/17 Last Taken 08/05/17 21:00] Medical - DS: Hosp Hospital course: Mr. Kincaid is a 86 year old Male with h/o chr back pain, who presented to the ER with 2 days history of not feeling well. The patient lives with his , was recently prescribed a medication I believe carbamazepine. The posterior most was taken on Monday night. Since Monday. The patient has been feeling weak and unsteady on his feet. He has dizziness when he tries to stand up, and has gait unsteadiness. The patient had some weakness in his lower extremity as well as unsteadiness. He notes his weakness started the day after he took the carbamazepine. The patient weakness progressed from yesterday to today, to a point where he is unable to ambulate by self. the patient also noted lower abdominal pain. In the ER the patient was noted to be afebrile, had mild leucocytosis, neg cxr and neg ua CT chest was done which showed sigmoid colitis without any complications The patient was admitted to medical floor for further management. The dermatitis was treated with IV antibiotics, ciprofloxacin as well as metronidazole. The patient's leukocytosis resolved, patient's abdominal pain improved. And the patient overall showed signs of improvement. Physical therapy worked with the patient, his gait and strength improved. He was able to ambulate with the help of walker. The dizziness resolved. At the time of discharge, the patient is able to tolerate by mouth and is steady. Back to his baseline. I'm not sure at this point. If the symptoms of lower extremity weakness, are related to the patient's use of carbamazepine or related to the acute infection. For the time being, we will hold carbamazepine still is evaluated by the primary care provider. Patient will need to be followed up by PCP, and will need a GI referral for a colonoscopy in 6 weeks The rest of the stay in the hospital was uneventful, the patient has been advised not to take carbamazepine, he will take oral antibiotics for 5 more days , but beyond this, no other changes in her medications have been done. Discharge diagnosis: Diverticulitis - Time Spent with Patient Total time spent providing and/or coordinating discharge services: Greater than 30 minutes Medical - DS: Exam - Constitutional Vitals: Vital Signs Temp Pulse Pulse Resp BP Pulse Ox 08/09/17 11:06 97.7 F 16 179/93 97 08/09/17 06:58 97.7 F 16 165/87 96 08/09/17 04:00 97.8 F 65 16 173/93 95 08/09/17 00:00 98.2 F 65 16 173/86 94 08/08/17 20:00 97.7 F 64 16 162/83 97 08/08/17 15:55 98.1 F 65 162/98 95 08/08/17 14:40 62 Intake and Output 08/08/17 08/09/17 08/09/17 21:59 05:59 13:59 Intake Total 340 / 340 520 / 520 840 / 840 Output Total 1600 / 1600 500 / 500 975 / 975 Balance -1260 / -1260 -135 / -135 Intake: IV 100 / 100 100 / 100 Oral 240 / 240 420 / 420 840 / 840 Output: Void Amount 1600 / 1600 500 / 500 975 / 975 Other: Meal Dinner Nourishment/Supplement Breakfast Percent of Meal Consumed 100% 100% 100% Feeding Ability Independent Independent Stool Size Moderate Stool Color Brown Stool Consistency Soft # Voids 1 # Bowel Movements 1 Weight 178 lb Additional comments: Constitutional; Afebrile, cooperative, alert, not in distress. Eyes- No icterus, , No periorbital swelling Ears- Ext ear normal, hearing normal to conversation. Neck- Midline trachea, supple Respiratory system: Air Entry equal on both sides, No crackles or wheezing, no rhonchi. CVS- Rate rhythm regular, S1,S2 heard, no gallop, no rub. 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 Medical - DS: Data Procedures and tests throughout hospitalization: abdominal CT MPRESSION: 1. Sigmoid diverticulitis - no abscess or other complication 2. Moderate distention of the urinary bladder. Prostate is mildly enlarged 3. Multiple parapelvic cysts on both kidneys 4. 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 head CT IMPRESSION: Mild atrophy with minimal chronic ischemic changes in the deep cerebral white matter typical for age and unchanged from prior study Chest x-ray IMPRESSION: No acute disease - stable since chest x-ray three years ago Labs on day of discharge: Labs from last 24 hours 08/09/17 08/09/17 04:22 04:22 WBC 8.4 RBC 3.68 L Hgb 12.1 L Hct 34.7 L MCV 94.3 MCH 32.9 MCHC 34.9 RDW 14.0 Plt Count 256 MPV 8.0 Gran % 48.3 Lymph % (Auto) 37.0 Bertie % (Auto) 9.2 Eos % (Auto) 5.1 Baso % (Auto) 0.4 Gran # 4.0 Lymph # (Auto) 3.1 Bertie # (Auto) 0.8 Eos # (Auto) 0.4 Baso # (Auto) 0 Sodium 142 Potassium 3.8 Chloride 108 Carbon Dioxide 22 Anion Gap 12.0 BUN 18 Creatinine 1.0 GFR Calculation 69 Glucose 87 Uric Acid 4.6 Calcium 8.7 Phosphorus 2.8 Magnesium 1.7 Total Bilirubin 0.2 Direct Bilirubin < 0.2 GGT 17 AST 15 ALT 10 Alkaline Phosphatase 92 Lactate Dehydrogenase 160 Total Protein 6.0 Albumin 3.2 Globulin 2.8 Albumin/Globulin Ratio 1.1 Triglycerides 86 Medical - DS: A/P - Patient/Caregiver Discharge Instructions Activity: as per physical therapy, increase activity as tolerated Diet: Low Fiber Additional Instructions: Please consume a low fiber diet until evaluated by a primary care provider. Take antibiotics ciprofloxacin and metronidazole for 5 more days You will need a colonoscopy likely 6 weeks out. Her primary care provider. We' ll schedule this for you For her back pain. Please talk to her primary care provider for alternative pain management Do not take carbamazepine Go to the emergency room if fever, chest pain, shortness of breath and or any other acute concerning symptom - Follow up Plan Follow up with: Ren Clayton MD [Primary Care Provider] - Disposition: Home Health Service Prognosis: Fair Rehab Potential: Fair I certify that the patient requires SNF services: No Overall status at discharge: patient is progressing back to baseline Medical - DS: Qual - VTE Deep Vein Thrombosis/Pulmonary Embolism Present on Admission: No
== END 2017-08-09 14:30 | disposition home health service (06) | DRG 392 ==
LOC: ED 12:12 → MEDSUR 12:12
PROVIDERS: ADMIT Internal Medicine; ATTEND Internal Medicine